=== PATIENT | female | born 1995 | race Caucasian/White ===

== ENCOUNTER 2021-06-05 14:01 | Inpatient (IN) ==
[2021-06-05] MEDS ORDERED: D5 1/2 NS 1,000 ML 1,000 ML IV ONE (14:07)
[2021-06-05] MEDS ORDERED: PITOCIN ONE (14:07)
[2021-06-05] MEDS ORDERED: BETADINE SOLN ONE (14:07)
[2021-06-05] MEDS ORDERED: D5 1/2 NS 1,000 mL + PITOCIN 20 UNITS/L IV 20 UNITS/1,000 ML BAG IV ONE (14:08)
[2021-06-05] MEDS ORDERED: D5 LR + PITOCIN 10 UNITS/L 10 UNITS/1,000 ML BAG IV ONE (14:08)
[2021-06-05] MEDS ORDERED: PHENERGAN INJ 25 MG IM PRN ×2 (14:13→18:04)
[2021-06-05] MEDS ORDERED: PITOCIN IVP ONE (14:13)
[2021-06-05] MEDS ORDERED: REGLAN INJ 10 MG VIAL IVP PRN (14:13)
[2021-06-05] MEDS ORDERED: D5 LR + PITOCIN 10 UNITS/L 10 UNITS/1,000 ML BAG IV PRN (14:13)
[2021-06-05] MEDS ORDERED: STADOL INJ IVP PRN (14:15)
[2021-06-05 14:44] LABS: BILIRUBIN,URINE NEGATIVE (NEGATIVE); BLOOD/HEMOGLOBIN,URINE 5+ (NEGATIVE); GLUCOSE, URINE NEGATIVE (NEGATIVE); KETONES,URINE NEGATIVE (NEGATIVE); LEUKOCYTE ESTERASE ,URINE 1+ (NEGATIVE); NITRITES,URINE NEGATIVE (NEGATIVE); PH,URINE 6.5 (5.0 - 8.0); PROTEIN,URINE 2+ (NEGATIVE); UROBILINOGEN,URINE NORMAL (NORMAL)
[2021-06-05 14:44] LABS: BASOPHILS # (AUTO) 0.1 X10^3/uL (0.0-0.1); BASOPHILS % (AUTO) 0.4 % (0.2-1.0); EOSINOPHILS % (AUTO) 0.2 % (0.9-2.9); HEMATOCRIT 39.4 % (36.0-47.0); HEMOGLOBIN 13.7 g/dL (12.0-16.0); LYMPHOCYTES # (AUTO) 1.6 X10^3/uL (1.3-2.9); LYMPHOCYTES % (AUTO) 10.6 % (21.0-51.0); MEAN CORPUSCULAR HGB CONC 34.9 g/dL (33.0-35.0); MEAN CORPUSCULAR VOLUME 91.6 fL (80.0-100.0); MEAN PLATELET VOLUME 8.2 fL (7.4-11.0); MONOCYTES # (AUTO) 0.9 x10^3/uL (0.3-0.8); NEUTROPHILS # (AUTO) 12.1 x10^3/uL (2.2-4.8); NEUTROPHILS % (AUTO) 82.8 % (42.0-75.0); RED CELL DISTRIBUTION WIDTH 12.4 % (11.6-16.5); WHITE BLOOD COUNT 14.7 X10^3/uL (3.6-10.0)
[2021-06-05 14:49] LABS: APPEARANCE,URINE CLEAR (CLEAR); COLOR,URINE YELLOW (YELLOW)
[2021-06-05 14:50] LABS: BLOOD UREA NITROGEN 7 mg/dL (7-18); CALCIUM 8.1 mg/dL (8.5-10.1); CARBON DIOXIDE 20.9 mmol/L (21-32); CHLORIDE 104 mmol/L (98-107); COR NA(FOR HYPERGLY) 135 mmol/L (136-145); CREATININE 0.51 mg/dL (0.55-1.02); SODIUM 135 mmol/L (136-145); eGFR NON BLACK RACES > 60 (>60)
[2021-06-05 14:53] LABS: BACTERIA,URINE TRACE /HPF (NEGATIVE); SQUAMOUS EPITHELIAL CELL,UR MANY /HPF (NEGATIVE)
[2021-06-05] MEDS ORDERED: D5 1/2 NS 1,000 ML 1,000 ML IV SCH (15:00)
[2021-06-05] MEDS ORDERED: FENTANYL VIAL INJ 100 mcg ONE ×2 (15:02→15:03)
[2021-06-05] MEDS ORDERED: NAROPIN EPIDURAL 0.2% 100 ML ONE (15:03)
[2021-06-05] MEDS ORDERED: LR 1,000 ML IV 1,000 ML IV ONE (15:03)
--- NOTE | 2021-06-05 16:09 | DR.OB ---
OB Quick Note - Assessment/Plan Assessment/Plan: L&D 06/05/21 at 2:50pm S-No complaint except CTX. O-Afebrile,VSS [id number] with good LTV, +accel, no decel. CTX=q 1 1/2 min., strong by palpation CVX=4cm/90%/0/VTX AROM with clear fluid. IUPC and FSE placed. A-IUP at 38 0/7 weeks in active labor P-Begin pitocin augmentation if needed. F/U labs Anticipate
[2021-06-05] MEDS ORDERED: ZOFRAN INJ 4 MG VIAL ONE (17:03)
[2021-06-05] MEDS ORDERED: MOTRIN TAB 800 MG PO PRN (18:04)
--- NOTE | 2021-06-05 18:04 | DR.OB ---
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 Head delivered over intact perineum. Nose and mouth bulb suctioned. No nuchal cord. Compound presentation noted with left hand to head. Body delivered over intact perineum. Cord clamped x 2 and cut. handed to attendant. Cord sent for gases. Placenta delivered spontaneously / intact / 3 vessel cord. No CVX tears. A small midline second degree tear noted and repaired with 0-vicryl in usual fashion. Viable female , VTX/OA, wt=5'9" and 8/9, stable to NBN. Mother stable to RR. [id number]. On examination, there was a clot adherent to a lateral 1/4 of placenta, possibly representing a small abruption.
[2021-06-05] MEDS: D5 1/2 NS 1,000 ML 1,000 ML with PITOCIN 20 UNITS IV SCH ×2 (19:06)
[2021-06-05] MEDS ORDERED: ADACEL or BOOSTRIX TDaP VACCINE IM ONE (19:22)
[2021-06-05] MEDS ORDERED: DERMOPLAST PAIN RELIEF SPRAY TOP PRN (19:22)
[2021-06-05] MEDS ORDERED: MILK OF MAGNESIA PO PRN (19:22)
[2021-06-05] MEDS ORDERED: AMBIEN PO PRN (19:22)
[2021-06-06 04:51] LABS: HEMATOCRIT 36.2 % (36.0-47.0); HEMOGLOBIN 12.6 g/dL (12.0-16.0)
[2021-06-06] MEDS: D5 1/2 NS 1,000 ML 1,000 ML with PITOCIN 20 UNITS IV SCH ×4 (07:41→10:03)
[2021-06-06] MEDS ORDERED: PRENATAL PLUS PO SCH (09:00)
[2021-06-06 16:53] VITALS: BP 106/76
== END 2021-06-06 19:30 | disposition home or self-care (01) | DRG 805 ==
LOC: EDBD → LD 14:01 → MED/SURG 20:00
PROVIDERS: ADMIT Specialist; ATTEND Specialist
DX: F12.90 Cannabis use, unspecified, uncomplicated; Z37.0 Single live birth; F15.90 Other stimulant use, unspecified, uncomplicated; O26.893 Other specified pregnancy related conditions, third trimester; Z3A.38 38 weeks gestation of pregnancy; O99.324 Drug use complicating childbirth; O70.1 Second degree perineal laceration during delivery; O64 Obstructed labor due to malposition and malpresentation of fetus; U07.1 COVID-19

== ENCOUNTER 2022-09-12 06:30 | Inpatient (IN) ==
[2022-09-12] MEDS ORDERED: PITOCIN ONE (06:46)
[2022-09-12] MEDS ORDERED: BETADINE SOLN ONE (06:47)
[2022-09-12] MEDS ORDERED: D5 1/2 NS 1,000 ML 1,000 ML IV ONE (06:47)
[2022-09-12] MEDS ORDERED: D5 LR + PITOCIN 10 UNITS/L 10 UNITS/1,000 ML BAG IV ONE (06:48)
[2022-09-12] MEDS ORDERED: D5 1/2 NS 1,000 mL + PITOCIN 20 UNITS/L IV 20 UNITS/1,000 ML BAG IV ONE (06:48)
--- NOTE | 2022-09-12 07:20 | DR.OB ---
OB Quick Note - Assessment/Plan Assessment/Plan: L&D 09/12/22 at 7:15am S-No complaint. O-Afebrile,VSS LWL=573 with good LTV, +accel, no decel. CTX=q 1 1/2 to 3 min., mild by palpation CVX=3cm/50%/-1/VTX AROM with clear fluid. IUPC and FSE placed. A-IUP at 39 2/7 weeks for induction P-Begin pitocin induction Anticipate
[2022-09-12] MEDS ORDERED: D5 1/2 NS 1,000 ML 1,000 ML IV SCH (07:46)
[2022-09-12] MEDS ORDERED: ZOFRAN INJ 4 MG VIAL IVP PRN (07:46)
[2022-09-12] MEDS ORDERED: STADOL INJ IVP PRN (07:46)
[2022-09-12] MEDS ORDERED: REGLAN INJ 10 MG VIAL IVP PRN (07:46)
[2022-09-12] MEDS ORDERED: NUBAIN INJ 20 MG AMP IVP PRN (07:46)
[2022-09-12] MEDS ORDERED: PITOCIN IVP ONE (07:46)
[2022-09-12] MEDS ORDERED: D5 LR + PITOCIN 10 UNITS/L 10 UNITS/1,000 ML BAG IV PRN (07:46)
[2022-09-12] MEDS ORDERED: FENTANYL VIAL INJ 100 mcg ONE (08:39)
[2022-09-12] MEDS ORDERED: LR 1,000 ML IV 1,000 ML IV ONE (08:39)
[2022-09-12] MEDS ORDERED: NAROPIN EPIDURAL 0.2% 100 ML ONE (08:39)
[2022-09-12] MEDS ORDERED: EPHEDRINE SULFATE INJ ONE (08:57)
[2022-09-12] MEDS ORDERED: ZOFRAN INJ 4 MG VIAL ONE (08:57)
[2022-09-12] MEDS ORDERED: MOTRIN TAB 800 MG PO PRN (13:19)
--- NOTE | 2022-09-12 13:19 | DR.OB ---
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 Head delivered over intact perineum. No nuchal cord. Nose and mouth bulb suctioned. Body delivered over intact perineum. Cord clamped x 2 and cut. Infant handed to attendant. Cord sent for gases. Placenta delivered spontaneously / intact / 3 vessel cord. No CVX tears. A midline second degree tear noted and repaired with 0-vicryl in usual fashion. Viable female infant delivered by , wt=6'12" and 8/9, stable to NBN. Mother stable to RR [id number].
[2022-09-12] MEDS: D5 1/2 NS 1,000 ML 1,000 ML with PITOCIN 20 UNITS IV SCH ×4 (13:53→21:05)
[2022-09-12] MEDS ORDERED: DERMOPLAST PAIN RELIEF SPRAY TOP PRN (14:00)
[2022-09-12] MEDS ORDERED: ADACEL or BOOSTRIX TDaP VACCINE IM ONE (14:00)
[2022-09-12] MEDS ORDERED: MILK OF MAGNESIA PO PRN (14:00)
[2022-09-12] MEDS ORDERED: AMBIEN PO PRN (14:00)
[2022-09-13] MEDS: D5 1/2 NS 1,000 ML 1,000 ML with PITOCIN 20 UNITS IV SCH ×4 (05:42→14:10)
[2022-09-13 05:46] LABS: HEMATOCRIT 30.3 % (36.0-47.0)
[2022-09-13 05:53] LABS: HEMOGLOBIN 10.6 g/dL (12.0-16.0)
[2022-09-13 08:43] VITALS: O2SAT 100
[2022-09-13] MEDS ORDERED: PRENATAL PLUS PO SCH (09:00)
[2022-09-13 12:14] VITALS: BP 104/61; PULSE 100; TEMP 97.7
== END 2022-09-13 15:03 | disposition home or self-care (01) | DRG 807 ==
LOC: LD 06:36 → MED/SURG 14:02
PROVIDERS: ADMIT Specialist; ATTEND Specialist

== ENCOUNTER 2024-01-01 06:36 | Inpatient (IN) ==
[2024-01-01] MEDS ORDERED: NUBAIN INJ 20 MG AMP IVP PRN (06:48)
[2024-01-01] MEDS ORDERED: ZOFRAN INJ 4 MG VIAL IVP PRN ×3 (06:48→18:19)
[2024-01-01] MEDS ORDERED: REGLAN INJ 10 MG VIAL IVP PRN ×2 (06:48→18:19)
[2024-01-01] MEDS: D5 1/2 NS 1,000 ML 1,000 ML IV SCH (07:00)
[2024-01-01 07:13] LABS: BASOPHILS # (AUTO) 0.1 X10^3/uL (0.0-0.1); BASOPHILS % (AUTO) 0.6 % (0.2-1.0); EOSINOPHILS # (AUTO) 0.1 x10^3/uL (0.0-0.2); EOSINOPHILS % (AUTO) 0.7 % (0.9-2.9); HEMATOCRIT 35.7 % (36.0-47.0); LYMPHOCYTES # (AUTO) 2.1 X10^3/uL (1.3-2.9); MEAN CORPUSCULAR HEMOGLOBIN 29.7 pg (27.0-34.0); MEAN CORPUSCULAR HGB CONC 33.6 g/dL (33.0-35.0); MEAN CORPUSCULAR VOLUME 88.2 fL (80.0-100.0); MEAN PLATELET VOLUME 8.7 fL (7.4-11.0); MONOCYTES # (AUTO) 0.9 x10^3/uL (0.3-0.8); MONOCYTES % (AUTO) 7.9 % (0.0-13.0); NEUTROPHILS # (AUTO) 8.4 x10^3/uL (2.2-4.8); NEUTROPHILS % (AUTO) 72.8 % (42.0-75.0); PLATELET COUNT 230 X10^3/uL (150.0-450.0); RED BLOOD COUNT 4.05 X10^6/uL (3.5-5.4); WHITE BLOOD COUNT 11.5 X10^3/uL (3.6-10.0)
[2024-01-01 07:21] LABS: BLOOD UREA NITROGEN 8 mg/dL (7-18); CARBON DIOXIDE 22.9 mmol/L (21-32); CHLORIDE 102 mmol/L (98-107); CREATININE 0.63 mg/dL (0.55-1.02); GLUCOSE 98 mg/dL (65-99); POTASSIUM 3.6 mmol/L (3.5-5.1); SODIUM 136 mmol/L (136-145); eGFR NON BLACK RACES > 60 (>60)
[2024-01-01 07:51] LABS: BILIRUBIN,URINE NEGATIVE (NEGATIVE); BLOOD/HEMOGLOBIN,URINE NEGATIVE (NEGATIVE); GLUCOSE, URINE NEGATIVE (NEGATIVE); KETONES,URINE NEGATIVE (NEGATIVE); LEUKOCYTE ESTERASE ,URINE 2+ (NEGATIVE); NITRITES,URINE NEGATIVE (NEGATIVE); PROTEIN,URINE 2+ (NEGATIVE); UROBILINOGEN,URINE NORMAL (NORMAL)
[2024-01-01] MEDS: OXYTOCIN 20 UNIT/1,000 ML-NS 20 UNIT/1,000 ML PLAST..BAG IV PRN (07:55)
--- NOTE | 2024-01-01 07:57 | DR.OB ---
OB QUICK NOTE Assessment/Plan (1) Elective induction of labor planned: Assessment/Plan: L&D 01/01/24 at 7:20am S-No complaint. O-Afebrile,VSS VPT=230 with good LTV, +accel, no decel. CTX=mild uterine irritability CVX=1cm/50%/-2/VTX AROM with clear fluid. IUPC placed. A-IUP at 39 1/7 weeks for induction P-Begin pitocin induction Anticipate
[2024-01-01 07:58] LABS: APPEARANCE,URINE SLIGHTLY HAZY (CLEAR); COLOR,URINE YELLOW (YELLOW)
[2024-01-01] MEDS: D5 1/2 NS 1,000 ML 1,000 ML IV ONE ×2 (08:11→12:32)
[2024-01-01] MEDS: PITOCIN ONE ×2 (11:01→16:33)
--- NOTE | 2024-01-01 12:17 | DR.OB ---
OB QUICK NOTE Assessment/Plan (1) Elective induction of labor planned: Assessment/Plan: L&D 01/01/24 Pitocin=2mu/min. S-No complaint except CTX. O-Afebrile,VSS RFW=205 with good LTV, +accel, variables noted. CTX=q 1 1/2 min., about 45-55mmHg CVX=3cm/50%/-2/VTX A-IUP at 39 1/7 weeks for induction P-Cont. pitocin induction Anticipate
[2024-01-01] MEDS: NS 1,000 ML IV 1,000 ML IR ONE (12:25)
[2024-01-01] MEDS: NS 1,000 ML IV 1,000 ML ONE (12:34)
[2024-01-01] MEDS: NOZIN NASAL SANITIZER TP ONE (13:30)
[2024-01-01] MEDS: NAROPIN EPIDURAL 0.2% 100 ML ONE (15:32)
[2024-01-01] MEDS: FENTANYL VIAL INJ 100 mcg ONE ×2 (15:32→16:16)
[2024-01-01] MEDS: ANCEF VIAL 1 GRAM ONE (15:36)
[2024-01-01] MEDS: NS 100 ML IV 100 ML ONE (15:36)
[2024-01-01] MEDS ORDERED: ULTANE GAS IN ONE (15:50)
[2024-01-01] MEDS: ZEMURON 100 MG VIAL ONE (16:03)
[2024-01-01] MEDS: DIPRIVAN VIAL 20 ML ONE ×2 (16:03→16:33)
[2024-01-01] MEDS: OFIRMEV IV 1000 MG VIAL 1,000 MG/100 ML VIAL IV ONE (16:09)
[2024-01-01] MEDS: VERSED ONE (16:15)
[2024-01-01] MEDS: PEPCID 20 MG VIAL ONE (16:32)
[2024-01-01] MEDS: DECADRON INJ ONE (16:32)
[2024-01-01] MEDS: ZOFRAN INJ 4 MG VIAL ONE (16:32)
[2024-01-01] MEDS: BRIDION ONE (16:33)
[2024-01-01] MEDS: TORADOL 30 MG VIAL ONE (16:34)
[2024-01-01] MEDS: DILAUDID INJ ONE (16:35)
[2024-01-01] MEDS: PITOCIN IVP ONE (17:18)
[2024-01-01] MEDS ORDERED: BENADRYL INJ 50 MG VIAL IVP PRN ×2 (17:38→18:19)
[2024-01-01] MEDS ORDERED: DILAUDID INJ IVP PRN (17:38)
[2024-01-01] MEDS ORDERED: NARCAN INJ IVP PRN (18:19)
[2024-01-01] MEDS: TORADOL 30 MG VIAL IVP PRN (18:27)
[2024-01-01] MEDS: PERCOCET TAB 5/325 MG PO PRN (21:27)
[2024-01-01] MEDS: BETADINE SOLN ONE (21:43)
[2024-01-01] MEDS: LIDOCAINE 2%-EPI 1:200,000 ONE (21:45)
[2024-01-02] MEDS: OXYTOCIN 20 UNIT/1,000 ML-NS 20 UNIT/1,000 ML PLAST..BAG IV SCH (04:22)
[2024-01-02 05:13] LABS: HEMATOCRIT 31.2 % (36.0-47.0); HEMOGLOBIN 10.5 g/dL (12.0-16.0)
[2024-01-02] MEDS: COLACE CAP 100 MG PO SCH (08:39)
[2024-01-02] MEDS: PRENATAL PLUS PO SCH (08:39)
[2024-01-02] MEDS: MOTRIN TAB 800 MG PO PRN (11:24)
[2024-01-02] MEDS: MYLICON TAB 80 MG CHEW PO PRN (11:24)
[2024-01-02] MEDS: BACTROBAN TOPICAL OINT TOP SCH (14:01)
[2024-01-02] MEDS: ADACEL or BOOSTRIX TDaP VACCINE IM ONE (18:51)
[2024-01-02] MEDS: PERCOCET TAB 5/325 MG PO PRN (20:53)
[2024-01-03 04:39] VITALS: O2SAT 97
[2024-01-03 08:33] VITALS: RESP 20
[2024-01-03 09:28] VITALS: BP 104/61; PULSE 80; TEMP 98
== END 2024-01-03 11:40 | disposition home or self-care (01) | DRG 788 ==
LOC: LD 06:36 → MED/SURG 18:01
PROVIDERS: ADMIT Specialist; ATTEND Specialist